=== PATIENT | female | born 1990 | race Caucasian/White ===

== ENCOUNTER 2023-12-16 23:33 | Emergency (ER) | payer SELFPAY ==
[~2023-12-16] VITALS: Ht 167.6 cm; Wt 90.9 kg
[2023-12-16 23:57] VITALS: BP 118/90; PULSE 94; RESP 19; TEMP 98.1; O2SAT 99
[2023-12-17] MEDS: LIDOCAINE 1% 10 ML VIAL SQ ONE (02:21)
[2023-12-17] MEDS ORDERED: IBUP-1554 PO (03:03)
[2023-12-17] MEDS ORDERED: BACI28.410 TP (03:03)
[2023-12-17] MEDS ORDERED: CEPH-558 PO (03:03)
[2023-12-17] MEDS: BACITRACIN 28 GM OINTMENT TP ONE (03:15)
== END 2023-12-17 03:49 | disposition home or self-care (01) ==
LOC: EMS 23:35
DX: S01.312A Laceration without foreign body of left ear, initial encounter (principal); W26.8XXA Contact with other sharp object(s), not elsewhere classified, initial encounter; Y93.89 Activity, other specified; Y92.89 Other specified places as the place of occurrence of the external cause; Y99.8 Other external cause status
CPT/HCPCS: 99283; 12013; J3490